=== PATIENT | male | born 1955 | race Caucasian/White ===

== ENCOUNTER 2016-10-17 12:43 | Emergency (ER) | payer OTHER ==
[2016-10-17 12:55] VITALS: BMI 28.1
--- NOTE | 2016-10-17 13:01 | PDOC ---
Attending Attestation - Resident Resident Name: AshuBin ahumada - HPI HPI: 10/17/16 15:25 Pt presents to the ED complaining of urinary retention. - Physicial Exam PE: 10/17/16 15:25 Abdomen distended on initial exam - Medical Decision Making 10/17/16 15:26 mooney placed with immediate improvement in his symptoms and >1000 cc out. Cr is normal. will discharge home.
--- NOTE | 2016-10-17 13:18 | PDOC ---
History of Present Illness - General Chief Complaint: Urinary Problem Stated Complaint: UNABLE TO URINIATE/PAIN Time Seen by Provider: 10/17/16 12:59 History Source: Patient Exam Limitations: No Limitations - History of Present Illness Initial Comments: 10/17/16 13:13 Patient is a 61M with a PMH of prostate enlargement who presents to the ED with a distended bladder and urinary retention. He has not urinated in 12 hours. He has only had drips for the past few hours. Has positive history of kidney stones but denies any sx. ROS+: urinary retention ROS-: dysuria, hematuria, testicular pain, fever, chills, nausea, vomiting, urgency, frequency Allergies: NKDA Social: does not smoke, drink, or use recreational drugs Past History - Past Medical History Allergies/Adverse Reactions: Allergies Allergy/AdvReac Type Severity Reaction Status Date / Time No Known Allergies Allergy Verified 10/17/16 12:51 Home Medications: Ambulatory Orders Naproxen [Naprosyn] 500 mg PO BID PRN #20 tablet 12/04/15 Ondansetron [Zofran *Odt*] 8 mg SL TID PRN #14 od.tablet 12/04/15 Oxycodone HCl/Acetaminophen [Percocet 5-325 mg Tablet] 1 - 2 combo PO Q4H PRN # 20 tablet MDD 12 12/04/15 Tamsulosin HCl [Flomax] 0.4 mg PO DAILY #3 capsule 12/04/15 Kidney Stones: Yes Other medical history: bph - Psycho/Social/Smoking Cessation Hx Anxiety: No Suicidal Ideation: No Smoking History: Never smoked Have you smoked in the past 12 months: No Information on smoking cessation initiated: No Hx Alcohol Use: No Drug/Substance Use Hx: No Substance Use Type: None Review of Systems - Review of Systems Able to Perform ROS?: Yes Is the patient limited Burkinan proficient: No Constitutional: No: Chills, Fever ABD/GI: Yes: Abdominal Distended. No: Nausea, Vomiting : Yes: Pain (secondary to distended bladder). No: Burning, Dysuria, Discharge , Frequency, Incontinence, Urgency, Testicular Swelling, Testicular Pain Neurological: No: Headache *Physical Exam - Vital Signs Last Vital Signs Temp Pulse Resp BP Pulse Ox 98.3 F 62 18 138/87 100 10/17/16 12:51 10/17/16 12:51 10/17/16 12:51 10/17/16 12:51 10/17/16 12:51 - Physical Exam General Appearance: Yes: Nourished, Appropriately Dressed Respiratory/Chest: positive: Lungs Clear, Normal Breath Sounds. negative: Chest Tender, Respiratory Distress Cardiovascular: positive: Regular Rhythm, Regular Rate, S1, S2 Gastrointestinal/Abdominal: positive: Flat, Soft. negative: Tender, Guarding, Tenderness Male Genitalia: positive: normal genitalia. negative: hematuria Integumentary: positive: Dry, Warm. negative: Swelling Neurologic: positive: Fully Oriented, Alert, Normal Mood/Affect, Normal Response ED Treatment Course - LABORATORY CBC & Chemistry Diagram: 10/17/16 13:39 Medical Decision Making - Medical Decision Making 10/17/16 15:25 Patient is a 61M with PMH of prostate enlargement who presented with a distended bladder. He was cathed and feels much better. Denies dysuria, fever, chills, kidney stones. CMP/creatinine WNL. Ready for discharge. *DC/Admit/Observation/Transfer Diagnosis at time of Disposition: Retention of urine - Discharge Dispostion Disposition: HOME Condition at time of disposition: Stable Admit: No - Referrals Referrals: Miki Ram MD [Staff Physician] - - Attestations Physician Attestion: 10/17/16 13:19 I, Dr. Bin Vega, attest that this document has been prepared under my direction and personally reviewed by me in its entirety. I further attest, that it accurately reflects all work, treatment, procedures and medical decision -making performed by me.
[2016-10-17 13:34] LABS: URINE APPEARANCE CLEAR; URINE BILIRUBIN NEGATIVE (NEGATIVE); URINE BLOOD NEGATIVE (NEGATIVE); URINE COLOR STRAW; URINE GLUCOSE (UA) NEGATIVE (NEGATIVE); URINE KETONE NEGATIVE (NEGATIVE); URINE LEUK ESTERASE NEGATIVE (NEGATIVE); URINE NITRITE NEGATIVE (NEGATIVE); URINE PROTEIN NEGATIVE (NEGATIVE); URINE UROBILINOGEN NEGATIVE E.U./dl (0.2-1.0)
[2016-10-17 15:09] LABS: ALBUMIN 3.7 g/dl (3.4-5.0); ANION GAP 8 (8-16); BILIRUBIN,TOTAL 0.4 mg/dL (0.2-1.0); CALCIUM 9.1 mg/dL (8.5-10.1); CO2 27 mmol/L (21-32); CREATININE 0.8 mg/dL (0.7-1.3); GLUCOSE,RANDOM 98 mg/dL (74-106); SGOT/AST 26 U/L (15-37); SGPT/ALT 37 U/L (12-78); TOT PROT 7.2 g/dl (6.4-8.2)
[2016-10-17 15:10] LABS: ALK PHOS 85 U/L (45-117)
[2016-10-17 16:03] VITALS: BP 131/92; PULSE 64; TEMP 98.6
== END 2016-10-17 16:05 | disposition home or self-care (01) ==
LOC: JER 12:43
PROC: 0T9B70Z Drainage of Bladder with Drainage Device, Via Natural or Artificial Opening (ICD-10-PCS; principal; 2016-10-17)
DX: N40.1 Benign prostatic hyperplasia with lower urinary tract symptoms (principal); R33.8 Other retention of urine
CPT/HCPCS: 36415; 51702; 80053; 81003; 87086; 99282-25

== ENCOUNTER 2018-08-07 09:07 | Emergency (ER) | payer OTHER ==
[2018-08-07 09:16] VITALS: TEMP 97.8; BMI 26.6
--- NOTE | 2018-08-07 10:18 | PDOC ---
History of Present Illness - General Chief Complaint: Pain, Acute Stated Complaint: RT. LOWER BACK PAIN Time Seen by Provider: 08/07/18 09:57 Past History - Travel Traveled outside of the country in the last 30 days: No Close contact w/someone who was outside of country & ill: No - Past Medical History Allergies/Adverse Reactions: Allergies Allergy/AdvReac Type Severity Reaction Status Date / Time No Known Allergies Allergy Verified 08/07/18 09:12 Home Medications: Ambulatory Orders Naproxen [Naprosyn] 500 mg PO BID PRN #20 tablet 12/04/15 Ondansetron [Zofran *Odt*] 8 mg SL TID PRN #14 od.tablet 12/04/15 Oxycodone HCl/Acetaminophen [Percocet 5-325 mg Tablet] 1 - 2 combo PO Q4H PRN # 20 tablet MDD 12 12/04/15 Tamsulosin HCl [Flomax] 0.4 mg PO DAILY #3 capsule 12/04/15 Ibuprofen 600 mg PO Q6H #30 tablet 08/07/18 Ondansetron [Zofran Odt -] 4 mg SL TID #10 od.tablet 08/07/18 Tamsulosin HCl [Flomax -] 0.4 mg PO DAILY #5 cap.er.24h 08/07/18 COPD: No Kidney Stones: Yes - Suicide/Smoking/Psychosocial Hx Smoking History: Never smoked Have you smoked in the past 12 months: No Hx Alcohol Use: No Drug/Substance Use Hx: No Substance Use Type: None Review of Systems - Review of Systems Able to Perform ROS?: Yes Comments:: 08/07/18 13:49 CONSTITUTIONAL: Absent: fever, chills, diaphoresis, generalized weakness, malaise, loss of appetite HEENT: Absent: rhinorrhea, nasal congestion, throat pain, throat swelling, difficulty swallowing, mouth swelling, ear pain, eye pain, visual Changes CARDIOVASCULAR: Absent: chest pain, loss of consciousness, palpitations, irregular heart rate, peripheral edema RESPIRATORY: Absent: cough, shortness of breath, dyspnea with exertion, orthopnea, wheezing, stridor, hemoptysis GASTROINTESTINAL: Absent: abdominal pain, abdominal distension, nausea, vomiting, diarrhea, constipation, melena, hematochezia GENITOURINARY: Absent: dysuria, frequency, urgency, hesitancy, hematuria, flank pain, genital pain MUSCULOSKELETAL: Absent: myalgia, arthralgia, joint swelling SKIN: Absent: rash, itching, pallor HEMATOLOGIC/IMMUNOLOGIC: Absent: easy bleeding, easy bruising, lymphadenopathy, frequent infections ENDOCRINE: Absent: unexplained weight gain, unexplained weight loss, heat intolerance, cold intolerance NEUROLOGIC: Absent: headache, focal weakness or paresthesias, dizziness, unsteady gait, seizure, mental status changes, bladder or bowel incontinence PSYCHIATRIC: Absent: anxiety, depression, suicidal or homicidal ideation, hallucinations. Is the patient limited Syriac proficient: No *Physical Exam - Vital Signs Last Vital Signs Temp Pulse Resp BP Pulse Ox 97.8 F 50 L 17 152/92 98 08/07/18 09:13 08/07/18 09:13 08/07/18 09:13 08/07/18 09:13 08/07/18 09:13 - Physical Exam Comments: 08/07/18 13:49 GENERAL: Well developed, well nourished. Awake and alert. No acute distress. HEENT: Normocephalic, atraumatic. PERRLA, EOMI. No conjunctival pallor. Sclera are non- icteric. Moist mucous membranes. Oropharynx is clear. NECK: Supple. Full ROM. No JVD. Carotid pulses 2+ and symmetric, without bruits. No thyromegaly. No lymphadenopathy. CARDIOVASCULAR: Regular rate and rhythm. No murmurs, rubs, or gallops. Distal pulses are 2+ and symmetric. PULMONARY: No evidence of respiratory distress. Lungs clear to auscultation bilaterally. No wheezing, rales or rhonchi. ABDOMINAL: Soft. Non-tender. Non-distended. No rebound or guarding. No organomegaly. Normoactive bowel sounds. MUSCULOSKELETAL Normal range of motion at all joints. No bony deformities or tenderness. No CVA tenderness. EXTREMITIES: No cyanosis. No clubbing. No edema. No calf tenderness. SKIN: Warm and dry. Normal capillary refill. No rashes. No jaundice. NEUROLOGICAL: Alert, awake, appropriate. Cranial nerves 2-12 intact. No deficits to light touch and temperature in face, upper extremities and lower extremities. No motor deficits in the in face, upper extremities and lower extremities. Normoreflexic in the upper and lower extremities. Normal speech. Toes are down- going bilaterally. Gait is normal without ataxia. PSYCHIATRIC: Cooperative. Good eye contact. Appropriate mood and affect. ED Treatment Course - LABORATORY CBC & Chemistry Diagram: 08/07/18 11:30 08/07/18 11:30 *DC/Admit/Observation/Transfer Diagnosis at time of Disposition: Kidney stone - Discharge Dispostion Disposition: HOME Condition at time of disposition: Stable Decision to Admit order: No - Referrals Referrals: Chase Mccarty MD [Staff Physician] - - Patient Instructions Printed Discharge Instructions: DI for Kidney Stones Additional Instructions: Hawk TAC muestra que tiene un clculo renal. Chenega debera pasar por hawk cuenta. Por favor, daniel muchos lquidos. Debra el Flomax brian vez al da hasta que la julio pase. l puede adrian Motrin 600 mg cada 6 horas segn sea necesario para el dolor. Por favor, seguimiento con la urologa. Se grimm proporcionado brian referencia. Regrese a la lexus de emergencias para empeorar el dolor, si no puede orinar, vomita o si tiene algn cambio en joesph sntomas. Your CAT scan shows that you have a kidney stone. This should pass on its own. Please drink plenty of fluids Take the Flomax once daily until the stone passes He may take Motrin 600 mg every 6 hours as needed for pain. Please follow up with urology. A referral has been provided. Return to the ER for worsening pain, if you're unable to urinate, vomiting, or if you have any changes in your symptoms. Print Language: GEORGIAN - Post Discharge Activity Forms/Work/School Notes: Back to Work
[2018-08-07] MEDS ORDERED: SODIUM CHLORIDE 1,000 ML IV STA (10:19)
[2018-08-07] MEDS ORDERED: ACETAMINOPHEN 1000 MG/100 ML VIAL (NON FORMULARY) IVPB ONE (10:20)
[2018-08-07] MEDS ORDERED: ACETAMINOPHEN INJECTION 100 ML IVPB ONE (11:23)
[2018-08-07 11:53] LABS: BASO % 0.4 % (0-2.0); EOS % 0.5 % (0-4.5); EPI CELLS 0.2 /HPF (0-5/HPF); HEMATOCRIT 42.8 % (35.4-49); HEMOGLOBIN 14.8 GM/dL (11.7-16.9); LYMPH % 9.2 % (8-40); MCH 28.9 pg (25.7-33.7); MCHC 34.5 g/dl (32.0-35.9); MEAN CELL VOLUME 83.7 fl (80-96); MEAN PLT VOLUME 8.1 fl (7.5-11.1); NEUT % 83.9 % (42.8-82.8); PLATELET COUNT 273 K/MM3 (134-434); RBC 5.12 M/mm3 (4.00-5.60); RDW 14.2 % (11.9-15.9); URINE APPEARANCE CLEAR; URINE BILIRUBIN NEGATIVE (NEGATIVE); URINE CASTS 0 /lpf (0-8); URINE COLOR YELLOW; URINE GLUCOSE (UA) NEGATIVE (NEGATIVE); URINE KETONE NEGATIVE (NEGATIVE); URINE LEUK ESTERASE NEGATIVE (NEGATIVE); URINE NITRITE NEGATIVE (NEGATIVE); URINE PROTEIN NEGATIVE (NEGATIVE); URINE RBC 2 /hpf (0-4); URINE UROBILINOGEN 0.2 mg/dL (0.2-1.0); URINE WBC 0 /hpf (0-5); WHITE BLOOD COUNT 11.1 K/mm3 (4.0-10.0)
[2018-08-07 12:22] LABS: ALK PHOS 77 U/L (45-117); ANION GAP 6 MMOL/L (8-16); BILIRUBIN,TOTAL 0.4 mg/dL (0.2-1); BLOOD UREA NITROGEN 13 mg/dL (7-18); CALCIUM 9.2 mg/dL (8.5-10.1); CHLORIDE 106 mmol/L (98-107); CO2 27 mmol/L (21-32); GLUCOSE,RANDOM 99 mg/dL (74-106); POTASSIUM 4.6 mmol/L (3.5-5.1); SGOT/AST 26 U/L (15-37); SGPT/ALT 32 U/L (13-61); SODIUM 138 mmol/L (136-145); TOT PROT 7.6 g/dl (6.4-8.2)
[2018-08-07] MEDS ORDERED: KETOROLAC TROMETHAMINE 30 MG/1 ML VIAL ONE (12:43)
[2018-08-07] MEDS ORDERED: KETOROLAC TROMETHAMINE 30 MG/1 ML VIAL IVPUSH ONE (12:44)
[2018-08-07 14:38] VITALS: BP 139/78; PULSE 49
== END 2018-08-07 14:38 | disposition home or self-care (01) ==
LOC: JER 09:07
PROC: 3E0337Z Introduction of Electrolytic and Water Balance Substance into Peripheral Vein, Percutaneous Approach (ICD-10-PCS; principal; 2018-08-07)
PROC: 3E033NZ Introduction of Analgesics, Hypnotics, Sedatives into Peripheral Vein, Percutaneous Approach (ICD-10-PCS; 2018-08-07)
PROC: 3E0333Z Introduction of Anti-inflammatory into Peripheral Vein, Percutaneous Approach (ICD-10-PCS; 2018-08-07)
DX: N20.0 Calculus of kidney (principal)
CPT/HCPCS: 36415; 74176-TC; 80053; 81003; 85025; 87086; 96361; 96374; 96375; 99283-25; J0131; J7030

== ENCOUNTER 2023-12-05 04:25 | Day surgery (SDC) | payer OTHER ==
[2023-12-02 14:39] VITALS: BMI 28.3
[2023-12-05] MEDS ORDERED: MIDAZOLAM HCL 2 MG/2 ML SINGLE DOSE VIAL ONE (15:20)
[2023-12-05] MEDS ORDERED: PROPOFOL 20 ML ONE (16:02)
[2023-12-05] MEDS ORDERED: ONDANSETRON 4 MG/2 ML VIAL IVPUSH PRN (16:39)
[2023-12-05] MEDS: LACTATED RINGERS SOLUTION 1,000 ML IV SCH (16:45)
[2023-12-06 09:28] VITALS: BP 144/87; PULSE 63; RESP 18; TEMP 98.8
[2023-12-06 10:06] LABS: BASO % 0.2 % (0-2.0); EOS % 2.2 % (0-4.5); HEMATOCRIT 42.5 % (35.4-49); HEMOGLOBIN 14.8 GM/dL (11.7-16.9); LYMPH % 12.2 % (8-40); MCH 28.2 pg (25.7-33.7); MCHC 34.7 g/dl (32.0-35.9); MEAN CELL VOLUME 81.2 fl (80-96); MEAN PLT VOLUME 7.7 fl (7.5-11.1); MONO % 5.2 % (3.8-10.2); NEUT % 80.2 % (42.8-82.8); PLATELET COUNT 276 10^3/uL (134-434); RBC 5.24 M/mm3 (4.00-5.60); RDW 14.6 % (11.9-15.9); WHITE BLOOD COUNT 9.9 K/mm3 (4.0-10.0)
[2023-12-06 10:15] LABS: POTASSIUM 4.2 mmol/L (3.5-5.1)
[2023-12-06 10:17] LABS: ALBUMIN 3.2 g/dl (3.4-5.0); BLOOD UREA NITROGEN 11.6 mg/dL (7-18); CALCIUM 8.9 mg/dL (8.5-10.1)
[2023-12-06 10:19] LABS: MAGNESIUM 1.9 mg/dL (1.8-2.4)
[2023-12-06 10:21] LABS: CREATININE 0.9 mg/dL (0.55-1.3)
[2023-12-06 10:22] LABS: BILIRUBIN,TOTAL 0.8 mg/dL (0.2-1); TOT PROT 6.8 g/dl (6.4-8.2)
== END 2023-12-06 15:51 | disposition home or self-care (01) ==
LOC: SUATTDRO 04:25 → JASUSAT 04:25 → JASU-SURG 04:25 → J5S 18:53 → JASUSAT 12-06 15:51
PROC: 0VT08ZZ Resection of Prostate, Via Natural or Artificial Opening Endoscopic (ICD-10-PCS; principal; 2023-12-05 13:15)
DX: N40.1 Benign prostatic hyperplasia with lower urinary tract symptoms (principal); R31.9 Hematuria, unspecified
CPT/HCPCS: 36415; 80053; 83735; 84100; 85025; 88305-TC; 94760